=== PATIENT | male | born 1965 | race Caucasian/White ===

== ENCOUNTER 2022-10-30 14:01 | Observation (INO) | payer OTHER, SELFPAY ==
--- NOTE | 2022-10-30 15:37 | RAD REPORT ---
EXAM DESCRIPTION: RAD - Chest Single View - 10/30/2022 3:24 pm CLINICAL HISTORY: CHEST PAIN COMPARISON: CHEST PA AND LAT 2 VIEW dated 01/07/2013 FINDINGS: Lines: None. Lungs: No evidence of edema or pneumonia. Pleural: No significant pleural effusions or pneumothorax. Cardiac: The heart size is within normal limits. Mediastinum: Within normal limits. Bones: No acute fractures. Other: None IMPRESSION: No acute cardiopulmonary disease.
[2022-10-30 16:16] LABS: Absolute Lymphocytes (CBC) 1.2 K/uL (0.7-4.9); Hematocrit 44.2 % (39.6-49.0); Lymphocytes % 20.7 % (15.3-44.8); MCV 96.7 fL (80-100); MPV 6.6 fL (7.6-11.3); RBC Red Blood Cell Count 4.57 M/uL (4.33-5.43)
[2022-10-30 16:36] LABS: Albumin 3.5 g/dL (3.4-5.0); Bilirubin Total 0.2 mg/dL (0.2-1.0); Potassium 3.9 mmol/L (3.5-5.1); Protein, Total 7.1 g/dL (6.4-8.2); Troponin High Sensitivity 6.1 pg/mL (<58.9)
--- NOTE | 2022-10-30 16:43 | ER ---
Nurse's Notes [facility] Name: Christofer Briggs Age: 56 yrs Sex: Male : 1965 Arrival Date: 10/30/2022 Time: 14:04 Bed 14 Private MD: Diagnosis: Chest pain, unspecified;Unstable angina Presentation: 10/30 14:16 Chief complaint: Patient states: LEFT SIDED DULL CHEST PAIN RADIATING TO LEFT JAW. bp Coronavirus screen: At this time, the client does not indicate any symptoms associated with coronavirus-19. Ebola Screen: No symptoms or risks identified at this time. Initial Sepsis Screen: Does the patient meet any 2 criteria? No. Patient's initial sepsis screen is negative. Does the patient have a suspected source of infection? No. Patient's initial sepsis screen is negative. Risk Assessment: Do you want to hurt yourself or someone else? Patient reports no desire to harm self or others. Onset of symptoms is unknown. 14:16 Method Of Arrival: Ambulatory bp 14:16 Acuity: KELSIE 3 bp Triage Assessment: 16:45 General: Appears in no apparent distress. comfortable, Behavior is calm, cooperative, db agitated. Pain: Complains of pain in chest. Cardiovascular: Reports chest pain, Capillary refill < 3 seconds. Historical: - Allergies: 14:26 Codeine; bp 14:26 Demerol; bp 14:26 Compazine; bp - Home Meds: 14:26 omeprazole 40 mg oral cpDR 1 cap once daily [Active]; zolpidem 10 mg Oral tab 1 tab bp once daily [Active]; AndroGel transdermal [Active]; Accuretic 10-12.5 mg oral tab 1 tab once daily [Active]; metoprolol tartrate 100 mg Oral tab 1 tab once daily [Active]; metformin 1,000 mg Oral tr24 1 tab 2 times per day [Active]; tadalafil 20 mg oral tab 1 tab once daily [Active]; aspirin 81 mg Oral cap 1 cap once daily [Active]; - PMHx: 14:26 Diabetes mellitus; Hypertensive disorder; bp - Immunization history:: Adult Immunizations up to date. - Social history:: Smoking status: Patient denies any tobacco usage or history of. Screenin:00 [facility] ED Fall Risk Assessment (Adult) History of falling in the last 3 months, db including since admission No falls in past 3 months (0 pts) Confusion or Disorientation No (0 pts) Intoxicated or Sedated No (0 pts) Impaired Gait No (0 pts) Mobility Assist Device Used No (0 pt) Altered Elimination No (0 pt) Score/Fall Risk Level 0 - 2 = Low Risk Oriented to surroundings, Maintained a safe environment. Abuse screen: Denies threats or abuse. Denies injuries from another. Nutritional screening: No deficits noted. Tuberculosis screening: No symptoms or risk factors identified. Assessment: 17:06 Reassessment: Patient appears in no apparent distress at this time. No changes from db previously documented assessment. Patient and/or family updated on plan of care and expected duration. Pain level reassessed. Patient is alert, oriented x 3, equal unlabored respirations, skin warm/dry/pink. Reassessment: PATIENT ON PHONE IN NAD. General: Appears in no apparent distress. comfortable, Behavior is calm, cooperative, appropriate for age, quiet. Pain:. 18:00 Pain: Complains of pain in chest Pain does not radiate. Pain began 1 day ago. db 18:50 Reassessment: Patient appears in no apparent distress at this time. PATIENT AMBULATORY db TO RESTROOM. 19:11 Neuro: No deficits noted. Level of Consciousness is awake, alert, obeys commands, db Oriented to person, place, time, situation, Appropriate for age. 20:22 Reassessment: Patient appears in no apparent distress at this time. Patient and/or jb4 family updated on plan of care and expected duration. Pain level reassessed. Patient is alert, oriented x 3, equal unlabored respirations, skin warm/dry/pink. Provider okayed pt to take his home dose of 10 mg of zolpidem. Pt instructed to inform staff when he takes medication. 21:19 Reassessment: Patient appears in no apparent distress at this time. Patient and/or jb4 family updated on plan of care and expected duration. Pain level reassessed. Patient is alert, oriented x 3, equal unlabored respirations, skin warm/dry/pink. 22:45 Reassessment: Patient appears in no apparent distress at this time. Patient and/or jb4 family updated on plan of care and expected duration. Pain level reassessed. Patient is alert, oriented x 3, equal unlabored respirations, skin warm/dry/pink. Vital Signs: 14:16 BP 119 / 75; Pulse 83; Resp 17; Temp 99; Pulse Ox 97% ; Weight 73.03 kg; Height 5 ft. 5 bp in. (165.10 cm); 17:00 BP 148 / 60; Pulse 63; Resp 18; Pulse Ox 99% on R/A; db 18:00 BP 136 / 87; Pulse 65; Resp 18; Pulse Ox 100% on R/A; db 18:30 BP 135 / 83; Pulse 65; Resp 18; Pulse Ox 100% on R/A; db 19:00 BP 130 / 82; Pulse 65; Resp 16; Pulse Ox 100% on R/A; jb4 20:00 BP 134 / 82; Pulse 69; Resp 16; Pulse Ox 99% on R/A; jb4 21:00 BP 115 / 63; Pulse 69; Resp 15; Pulse Ox 98% on R/A; jb4 22:00 BP 137 / 82; Pulse 66; Resp 16; Pulse Ox 96% on R/A; jb4 14:16 Body Mass Index 26.79 (73.03 kg, 165.10 cm) bp Vitals: 17:00 Cardiac Rhythm Assessment Regular. ED Course: 14:04 Patient arrived in ED. jj6 14:18 Triage completed. bp 14:57 Priscilla Hooper MD is Attending Physician. sd2 15:26 XRAY Chest (1 view) In Process Unspecified. EDMS 15:52 Dejah Walton, RN is Primary Nurse. db 16:07 BNP Sent. ld1 16:07 CMP Sent. ld1 16:07 Troponin High Sensitivity Sent. ld1 16:07 CBC with Diff Sent. ld1 16:07 Inserted saline lock: 20 gauge in right upper arm, using aseptic technique. Blood ld1 collected. 16:42 Leida Hillman MD is Hospitalizing Provider. sd2 16:45 Arm band placed on right wrist. Patient placed in an exam room, on a stretcher, on db cardiac sonographer. 17:00 Patient has correct armband on for positive identification. Bed in low position. Call db light in reach. Side rails up X 1. Client placed on continuous cardiac and pulse oximetry monitoring. NIBP monitoring applied. Warm blanket given. 21:19 SARS RAPID Sent. tw5 22:46 No provider procedures requiring assistance completed. Patient admitted, IV remains in jb4 place. Patient maintains SpO2 saturation greater than 95% on room air. Administered Medications: 16:54 Drug: Aspirin Chewable Tablet 324 mg Route: PO; db 19:10 Follow up: Response: No adverse reaction db 22:32 Not Given (Patient Refused): Ambien (zolpidem) 10 mg PO once jb4 Medication: 17:00 VIS not applicable for this client. db Outcome: 16:42 Decision to Hospitalize by Provider. sd2 22:46 Admitted to Med/surg accompanied by nurse, via wheelchair, room 229, with chart. jb4 22:46 Condition: stable 22:46 Discharge instructions given to patient, Instructed on the need for admit, Demonstrated understanding of instructions. 22:47 Patient left the ED. jb4 Signatures: Dispatcher [employer] EDNav Dickerson RN RN jb4 Hector Fernandez RN RN bp Lorraine Wallace RN RN ld1 Reyna Mendieta tw5 Faith Leblanc j6 Priscilla Hooper MD MD sd2 Dejah Walton RN RN db Corrections: (The following items were deleted from the chart) 19:11 19:11 Pain: Complains of pain in chest Pain does not radiate. Pain began 1 day ago. db db
--- NOTE | 2022-10-30 16:43 | EDPHYS ---
Physician Documentation [facility] [place] Name: Christofer Briggs Age: 56 yrs Sex: Male : 1965 Arrival Date: 10/30/2022 Time: 14:04 Bed 14 Private MD: ED Physician Priscilla Hooper HPI: 10/30 16:12 This 56 yrs old Male presents to ER via Ambulatory with complaints of Chest Pain. sd2 16:12 56 yo M presents with CC of chest pain on and off for the past 3 weeks. Initially was sd2 driving down to [place] and felt L sided CP radiating into his jaw with sweating of both of his hands, SOB and nausea and was seen at hospital there with negative workup. Followed up with GI, Dr. Nguyen, upon his return with negative EGD. Seen by Dr. Fuchs today with concern for unstable angina and pt sent to ER for admission for heart cath to be performed tomorrow. . Historical: - Allergies: 14:26 Codeine; bp 14:26 Demerol; bp 14:26 Compazine; bp - Home Meds: 14:26 omeprazole 40 mg oral cpDR 1 cap once daily [Active]; zolpidem 10 mg Oral tab 1 tab bp once daily [Active]; AndroGel transdermal [Active]; Accuretic 10-12.5 mg oral tab 1 tab once daily [Active]; metoprolol tartrate 100 mg Oral tab 1 tab once daily [Active]; metformin 1,000 mg Oral tr24 1 tab 2 times per day [Active]; tadalafil 20 mg oral tab 1 tab once daily [Active]; aspirin 81 mg Oral cap 1 cap once daily [Active]; - PMHx: 14:26 Diabetes mellitus; Hypertensive disorder; bp - Immunization history:: Adult Immunizations up to date. - Social history:: Smoking status: Patient denies any tobacco usage or history of. ROS: 16:12 Constitutional: Negative for fever, chills, and weight loss, Eyes: Negative for injury, sd2 pain, redness, and discharge. 16:12 MS/Extremity: Negative for injury and deformity, Skin: Negative for injury, rash, and discoloration, Neuro: Negative for headache, numbness and tingling. 16:12 Cardiovascular: Positive for chest pain, Negative for edema, acute changes. 16:12 Respiratory: Positive for shortness of breath, Negative for cough, wheezing. 16:12 Abdomen/GI: Positive for nausea, Negative for abdominal pain, vomiting, diarrhea. Exam: 16:12 Constitutional: This is a well developed, well nourished patient who is awake, alert, sd2 and in no acute distress. Head/Face: Normocephalic, atraumatic. Eyes: EOMI, normal conjunctiva bilaterally Chest/axilla: Normal chest wall appearance and motion. Nontender with no deformity. Cardiovascular: Regular rate and rhythm with a normal S1 and S2. No gallops, murmurs, or rubs. 2+ distal pulses. Respiratory: Lungs have equal breath sounds bilaterally, clear to auscultation and percussion. No rales, rhonchi or wheezes noted. No increased work of breathing, no retractions or nasal flaring. Abdomen/GI: Soft, non-tender, with normal bowel sounds. No guarding or rebound. No evidence of tenderness throughout. Skin: Warm, dry with normal turgor. Normal color with no rashes, no lesions, and no evidence of cellulitis. MS/ Extremity: Pulses equal, no cyanosis. Neurovascular intact. Full, normal range of motion. Ambulatory without difficulty. Psych: Awake, alert, with orientation to person, place and time. Behavior, mood, and affect are within normal limits. 16:12 ECG was reviewed by the Attending Physician. NSR, rate 75, no STEMI criteria Vital Signs: 14:16 BP 119 / 75; Pulse 83; Resp 17; Temp 99; Pulse Ox 97% ; Weight 73.03 kg; Height 5 ft. 5 bp in. (165.10 cm); 17:00 BP 148 / 60; Pulse 63; Resp 18; Pulse Ox 99% on R/A; db 18:00 BP 136 / 87; Pulse 65; Resp 18; Pulse Ox 100% on R/A; db 18:30 BP 135 / 83; Pulse 65; Resp 18; Pulse Ox 100% on R/A; db 19:00 BP 130 / 82; Pulse 65; Resp 16; Pulse Ox 100% on R/A; jb4 20:00 BP 134 / 82; Pulse 69; Resp 16; Pulse Ox 99% on R/A; jb4 21:00 BP 115 / 63; Pulse 69; Resp 15; Pulse Ox 98% on R/A; jb4 22:00 BP 137 / 82; Pulse 66; Resp 16; Pulse Ox 96% on R/A; jb4 14:16 Body Mass Index 26.79 (73.03 kg, 165.10 cm) bp MDM: 16:11 Patient medically screened. sd2 16:15 Differential diagnosis: Differential diagnosis includes but is not limited to: ACS, sd2 DVT/PE, pneumothorax, dissection, musculoskeletal, anxiety, anemia, electrolyte abnormality, pneumonia, CHF, COPD among others. Data reviewed: vital signs, nurses notes. 16:40 HEART Score: History: Moderately Suspicious (1), ECG: Normal (0), Age: > 45 and < 65 sd2 years (1), Risk Factors: 1 or 2 risk factors (1), Troponin: < or = 1 x Normal Limit (0), Total Score = 3. The patient was given aspirin in the Emergency Department. Data reviewed: lab test result(s), EKG, radiologic studies. Counseling: I had a detailed discussion with the patient and/or guardian regarding: the historical points, exam findings, and any diagnostic results supporting the discharge/admit diagnosis, lab results, radiology results, the need for further work-up and treatment in the hospital. ED course: Labs and imaging reviewed. Grossly WNCL. Trop neg. EKG with no ischemic changes. CXR with no acute process. Discussed case with Dr. Fuchs with concern for unstable angina. Would like patient admitted to continue to trend troponin and plan for heart cath tomorrow. Pt in agreement with treatment plan at this time. . 10/30 15:13 Order name: CBC with Diff; Complete Time: 16:37 sd2 10/30 15:13 Order name: CMP; Complete Time: 16:37 sd2 10/30 15:13 Order name: Troponin High Sensitivity; Complete Time: 16:37 sd2 10/30 15:13 Order name: BNP; Complete Time: 16:37 sd2 10/30 16:53 Order name: Troponin High Sensitivity EDMS 10/30 16:53 Order name: Lipid Profile EDMS 10/30 15:13 Order name: XRAY Chest (1 view); Complete Time: 15:48 sd2 10/30 16:53 Order name: Echo with Doppler EDMS 10/30 16:53 Order name: Echo with Doppler EDMS 10/30 16:53 Order name: Lipid Profile EDMS 10/30 16:53 Order name: Troponin High Sensitivity EDNE 10/30 16:53 Order name: Troponin High Sensitivity EDNE 10/30 20:16 Order name: SARS RAPID wm 10/30 21:41 Order name: SARS-COV-2 Antigen Rapid EDNE 10/30 14:30 Order name: EKG; Complete Time: 14:30 bp 10/30 14:30 Order name: EKG - Nurse/Tech; Complete Time: 14:30 bp 10/30 16:53 Order name: CONS Physician Consult EDNE 10/30 16:53 Order name: Heart Healthy EDNE 10/30 16:53 Order name: EKG Electrocardiogram EDMS 10/30 16:53 Order name: EKG Electrocardiogram EDNE Administered Medications: 16:54 Drug: Aspirin Chewable Tablet 324 mg Route: PO; db 19:10 Follow up: Response: No adverse reaction db 22:32 Not Given (Patient Refused): Ambien (zolpidem) 10 mg PO once jb4 Disposition Summary: 10/30/22 16:42 Hospitalization Ordered Hospitalization Status: Observation sd2 Provider: Leida Hillman sd2 Condition: Stable sd2 Problem: new sd2 Symptoms: are unchanged sd2 Bed/Room Type: Standard sd2 Location: Telemetry/MedSurg (observation)(10/30/22 19:16) dw Room Assignment: 229(10/30/22 21:54) Diagnosis - Chest pain, unspecified sd2 - Unstable angina sd2 Forms: - Medication Reconciliation Form sd2 - SBAR form sd2 Signatures: Dispatcher [employer] [facility] Carla Gooden RN RN Niharika Disla RN RN dw Hector Fernandez RN RN Priscilla Chen MD MD sd2 Dejah Walton, RN RN Teri Hernández PA-C PA-C sbNav Edwards RN jb4 Corrections: (The following items were deleted from the chart) 19:13 16:42 sd2 dw 19:16 16:42 Telemetry/MedSurg (observation) sd2 dw 19:16 19:13 205 dw dw 21:54 19:16 dw
[2022-10-30] MEDS ORDERED: MORPHINE 4 MG/ML SYR IV PRN (16:46)
[2022-10-30] MEDS ORDERED: ACETAMINOPHEN 500 MG TAB PO PRN (16:46)
[2022-10-30] MEDS ORDERED: ALPRAZOLAM 0.25 MG TABLET PO PRN (16:46)
[2022-10-30] MEDS ORDERED: ASPIRIN 81 MG CHEWABLE TABLET ONE (16:52)
[2022-10-30] MEDS ORDERED: ENOXAPARIN 100 MG/ML SYR SQ SCH (18:00)
[2022-10-30] MEDS: METOPROLOL TAR 50 MG TAB PO SCH ×2 (18:00→21:00)
[2022-10-30] MEDS ORDERED: ENOXAPARIN 80 MG/0.8 ML SQ SCH (18:30)
--- NOTE | 2022-10-30 21:24 | P.HP ---
Certification for Inpatient Patient admitted to: Observation With expected LOS: <2 Midnights Patient will require the following post-hospital care: None Practitioner: I am a practitioner with admitting privileges, knowledge of patient current condition, hospital course, and medical plan of care. Services: Services provided to patient in accordance with Admission requirements found in Title 42 Section 412.3 of the Code of Federal Regulations Patient History Date of Service: 10/30/22 Reason for admission: Chest pain rule out acute coronary syndrome History of Present Illness: Patient is a 56-year-old gentleman who comes in the hospital with chest discomfort. Actually was at an outside hospital in [place], [place] with the same issue a few weeks ago. He was ruled out for acute myocardial infarction. Troponins were negative x3. He went and followed up with Gastroenterology and had an EGD performed which did not reveal any significant pathology. Since they were not really able to get to the bottom a was causing his chest discomfort they want to see Cardiology. His symptoms were concerning as he had pain going down his left arm and up his left neck. He was diaphoretic as well. He was sent to the emergency room for further workup. In the ER his initial troponins are negative and EKG shows no abnormalities. Patient will be admitted to the hospital for further workup. Allergies codeine Allergy (Verified 10/30/22 20:38) Nausea/Vomiting meperidine [From Demerol] Allergy (Verified 10/30/22 20:38) Itching/Hives/Rash prochlorperazine [From Compazine] Allergy (Verified 10/30/22 20:38) Itching/Hives/Rash - Past Medical/Surgical History -: HTN -: DM2 -: Dyslipidemia Past Surgical History: Patient denies surgical history - Family History Father Family History: Reviewed- Non-Contributory - Social History Smoking Status: Former smoker Alcohol use: No CD- Drugs: No Review of Systems 10-point ROS is otherwise unremarkable Physical Examination - Vital Signs Temperature: 98 F Blood Pressure: 140/80 Pulse: 90 Respirations: 18 Pulse Ox (%): 96 - Physical Exam General: Alert, In no apparent distress, Oriented x3 HEENT: Atraumatic, PERRLA, Mucous membr. moist/pink, EOMI, Sclerae nonicteric Neck: Supple, 2+ carotid pulse no bruit, No LAD, Without JVD or thyroid abnormality Respiratory: Clear to auscultation bilaterally, Normal air movement Cardiovascular: Regular rate/rhythm, Normal S1 S2, No murmurs Gastrointestinal: Normal bowel sounds, Soft and benign, Non-distended, No tenderness Musculoskeletal: No clubbing, No swelling, No tenderness Integumentary: No rashes Neurological: Normal gait, Normal speech, Normal strength at 5/5 x4 extr, Normal tone, Sensation intact, Cranial nerves 3-12 intact, Normal affect Lymphatics: No axilla or inguinal lymphadenopathy - Studies Laboratory Data (last 24 hrs) 10/30/22 16:03: Sodium 138, Potassium 3.9, BUN 25 H, Creatinine 1.02, Glucose 207 H, Total Bilirubin 0.2, AST 10 L, ALT 24, Alkaline Phosphatase 68 10/30/22 16:03: WBC 5.80, Hgb 14.9, Hct 44.2, Plt Count 279 Assessment & Plan - Problems (Diagnosis) (1) Chest pain, rule out acute myocardial infarction Current Visit: Yes Status: Acute (2) HTN (hypertension) Current Visit: Yes Status: Acute (3) DM2 (diabetes mellitus, type 2) Current Visit: Yes Status: Acute Qualifiers: Diabetes mellitus complication status: without complication (4) Dyslipidemia Current Visit: Yes Status: Acute - Plan 1. Serial troponins and EKG 2. Appreciate Cardiology consultation 3. Echocardiogram and possible cath in the AM 4. Anti-platelet therapy, anti coagulation, beta-ronny, statin, and O2 as needed 5. IV morphine for pain 6. Nitro p.r.n. 7. Strict BP and BS control Discharge Plan: Home Plan to discharge in: 48 Hours - Advance Directives Does patient have a Living Will: No Does patient have a Durable POA for Healthcare: No - Code Status/Comfort Care Code Status Assessed: Yes Code Status: Full Code Critical Care: No Time Spent Managing PTS Care (In Minutes): 45
[2022-10-30 21:41] LABS: SARS-CoV-2 Antigen Rapid Res Negative (Negative)
[2022-10-30] MEDS ORDERED: ENOXAPARIN 80 MG/0.8 ML SQ ONE (22:57)
[2022-10-30 22:59] VITALS: BMI 26.8
[2022-10-31] MEDS ORDERED: ASPIRIN EC 81 MG TAB PO SCH (09:00)
[2022-10-31] MEDS: METOPROLOL TAR 50 MG TAB PO SCH (10:08)
[2022-10-31] MEDS ORDERED: HEPA 1000U/500MLS 2,000 UNIT/1,000 ML BAG IV ONE (10:58)
[2022-10-31] MEDS ORDERED: LIDOCAINE 1% MPF 30 ML VIAL ONE ×2 (10:58→13:08)
[2022-10-31] MEDS ORDERED: NA CHLORIDE 0.9% 500 ML ONE ×2 (11:49→13:46)
[2022-10-31 12:19] VITALS: TEMP 97.1
[2022-10-31] MEDS ORDERED: HEPARIN 5000 UNIT/ML 1 ML VIAL ONE (13:07)
[2022-10-31] MEDS ORDERED: FENTANYL CITR 100 MCG/2 ML ONE (13:07)
[2022-10-31] MEDS ORDERED: MIDAZOLAM HCL 2 MG/2 ML INJ ONE (13:07)
[2022-10-31] MEDS ORDERED: VERAPAMIL HCL 10 MG/4 ML VIAL IV ONE (13:08)
[2022-10-31] MEDS ORDERED: ATROPINE SULF 1 MG/10 ML SYR IV ONE (13:08)
[2022-10-31] MEDS ORDERED: HEPARIN 10,000 UNIT/10 ML VIAL IV ONE (13:08)
--- NOTE | 2022-10-31 14:52 | EKG ---
Test Date: 2022-10-30 Test Time: 14:26:09 Sewing Pattern Layout Technician: MABEL MEASUREMENT RESULTS: Intervals: Rate: 75 ND: 142 QRSD: 96 QT: 394 QTc: 439 [place]: P: 14 ND: 142 QRS: -14 T: 16 INTERPRETIVE STATEMENTS: Normal sinus rhythm Normal ECG Compared to ECG 04/13/2003 14:52:00 No significant changes Electronically Signed On 10-31-22 14:50:37 PRICING ACTUARY by Jose Fuchs
[2022-10-31 15:03] VITALS: O2SAT 97
[2022-10-31 15:17] VITALS: BP 105/61
--- NOTE | 2022-10-31 15:33 | CON ---
Date of Consultation: 10/31/2022 Reason For Consultation: Chest pain and unstable angina. History Of Present Illness: 56-year-old male, history of diabetes, hypertension, dyslipidemia, has b een having chest pain on minimal exertion, feels short of breath and about to faint with minimal acti vities and he was having active chest pain at the time of my evaluation in the office. He was sent t o the emergency room where his cardiac enzymes have been negative. Past Medical History: As outlined above in the HPI. Medications: Refer to reconciliation sheet for detailed list. Allergies: CODEINE, IVABRADINE, AND PROCHLORPERAZINE. Family History: No premature coronary artery disease or cancer. Social History: Does not smoke or drink. Does not use any drugs. Review of Systems: All systems reviewed and they were negative except for mentioned in HPI. Physical Examination: Vital Signs: Reviewed. Head and Neck: Pupils are equal, reactive to light. Intact eye movements. No JVD. No cervical lym phadenopathy. Neck is supple. Thyroid is not enlarged. Lungs: Clear to auscultation bilaterally. No rhonchi, rales, or crackles. No accessory muscle use. Heart: Regular rate and rhythm. No extra sounds. Abdomen: Soft, nontender. Bowel sounds positive. No organomegaly. No masses or hernia. No rigidi ty or rebound. Extremities: No edema, clubbing, or cyanosis. Intact pulses. Skin: No rash. Neurologic: Alert, awake, oriented x3. No acute focal deficits appreciated. Investigations: Troponins x3 are negative. BUN is 25, creatinine 1.02, and hemoglobin is 14.9. Assessment And Recommendation: 1.Chest pain suggestive of unstable angina. Cardiac enzymes are negative. Patient is n.p.o. Plan for coronary angiogram today. If coronary angiogram is normal, patient can be released afterwards. 2.Hypertension. Blood pressure is controlled. Continue current management. 3.Dyslipidemia and recommend high-dose statin with the Lipitor 40 mg q.h.s. SR/MODL Voice ID: [id number] Report ID: [id number]
--- NOTE | 2022-10-31 18:00 | OP ---
Date of Procedure: 10/31/2022 Surgeon: WAYNE SILVA Procedures Performed: 1.Selective coronary angiogram. 2.Left heart catheterization. Indication: Unstable angina. Access: Right radial artery 6-Salvadorean closed with TR band. Complications: None. Bleeding: Less than 10 mL. Description Of Procedure: After risks, benefits, alternatives were explained, patient agreed to the procedure and signed informed consent. Patient was brought to the cardiac catheterization laboratory , prepped and draped in sterile fashion. Then, I accessed right radial artery using pediatric microp uncture kit, placed 6-Salvadorean Slender sheath and took a 5-Salvadorean [place] 4.0 catheter into the aortic ro ot, engaged the RCA, could not engage the left main due to high takeoff and the angulation, so I used a 6-Salvadorean EBU 4 guide and engaged the left main, took standard views and then removed the guide and using the [place] catheter, the catheter was pushed over the wire into the LV. LVEDP was measured and pullback did not record any gradient and then removed old catheter and the sheath and placed TR band with good hemostasis. Findings: 1.Left main: Normal. 2.LAD: Large vessel, normal diagonal branches, normal LAD except the midportion there is a focal 20 % stenosis. 3.Left circumflex: Moderate-sized, normal, free of disease and normal OM branches. 4.RCA: Large and dominant and normal. 5.Normal LVEDP at 8 mmHg. Conclusion: 1.Mild nonobstructive coronary artery disease as outlined above. 2.Normal LVEDP. Plan: Medical management. SR/MODL Voice ID: [id number] Report ID: [id number]
--- NOTE | 2022-11-04 07:51 | ECHO ---
HEIGHT: 5 ft 5 in WEIGHT: 161 lb 0 oz DATE OF STUDY: 10/31/[address]: Leida Hillman MD 2-DIMENSIONAL: YES M.MODE: YES DOPPLER: YES COLOR FLOW: YES TDS: NO PORTABLE: YES DEFINITY: NO BUBBLE STUDY: NO DIAGNOSIS: CHEST PAIN/ ACUTE CORONARY SYNDROME CARDIAC HISTORY: CATHERIZATION: NO SURGERY: NO PROSTHETIC VALVE: NO PACEMAKER: NO MEASUREMENTS (cm) DIASTOLIC (NORMALS) SYSTOLIC (NORMALS) IVSd 0.8 (0.6-1.2) LA Diam 3.9 (1.9-4.0) LVEF 61% LVIDd 4.8 (3.5-5.7) LVIDs 3.3 (2.0-3.5) %FS 32% LVPWd 0.9 (0.6-1.2) Ao Diam 3.1 (2.0-3.7) 2 DIMENSIONAL ASSESSMENT: RIGHT ATRIUM: NORMAL LEFT ATRIUM: NORMAL RIGHT VENTRICLE: NORMAL LEFT VENTRICLE: NORMAL TRICUSPID VALVE: MILD TRICUSPID REGURGITATION MITRAL VALVE: NORMAL PULMONIC VALVE: NORMAL AORTIC VALVE: MILD AORTIC INSUFFICIENCY PERICARDIAL EFFUSION: NONE AORTIC ROOT: NORMAL LEFT VENTRICULAR WALL MOTION: NORMAL. DOPPLER/COLOR FLOW: SEE BELOW. COMMENTS: NORMAL LEFT VENTRICULAR EJECTION FRACTION 60-65%. NORMAL WALL MOTION. MILD TRICUSPID REGURGITATION. MILD PULMONIC INSUFFICIENCY. TRACE OF MITRAL REGURGITATION. TECHNOLOGIST: LASHAUN ACOSTA
--- NOTE | 2022-11-16 03:19 | P.DS ---
Discharge Date: 10/31/22 Disposition: ROUTINE DISCHARGE Discharge Condition: GOOD Reason for Admission: Chest pain rule out acute coronary syndrome Consultations: Cardiology/ cardiac catheterization - Problems (1) Chest pain, rule out acute myocardial infarction Status: Acute (2) HTN (hypertension) Status: Acute (3) DM2 (diabetes mellitus, type 2) Status: Acute Qualifiers: Diabetes mellitus complication status: without complication (4) Dyslipidemia Status: Acute Brief History of Present Illness: Patient is a 56-year-old gentleman who comes in the hospital with chest discomfort. Actually was at an outside hospital in [place], [place] with the same issue a few weeks ago. He was ruled out for acute myocardial infarction. Troponins were negative x3. He went and followed up with Gastroenterology and had an EGD performed which did not reveal any significant pathology. Since they were not really able to get to the bottom a was causing his chest discomfort they want to see Cardiology. His symptoms were concerning as he had pain going down his left arm and up his left neck. He was diaphoretic as well. He was sent to the emergency room for further workup. In the ER his initial troponins are negative and EKG shows no abnormalities. Patient will be admitted to the hospital for further workup. Hospital Course: patient had an echocardiogram which was unremarkable. No abnormal findings noted. Patient had cardiac catheterization performed and no significant coronary artery lesions. Patient is clinically doing well and at this time patient is stable for discharge home. Vital Signs/Physical Exam: Temp Pulse Resp BP Pulse Ox 97.1 F 64 18 105/61 96 10/31/22 12:00 10/31/22 15:15 10/31/22 15:15 10/31/22 15:15 10/31/22 12:00 General: Alert, In no apparent distress, Oriented x3 Laboratory Data at Discharge: WBC 5.80 K/uL (4.3-10.9) 10/30/22 16:03 Hgb 14.9 g/dL (13.6-17.9) 10/30/22 16:03 Hct 44.2 % (39.6-49.0) 10/30/22 16:03 Plt Count 279 K/uL (152-406) 10/30/22 16:03 Sodium 138 mmol/L (136-145) 10/30/22 16:03 Potassium 3.9 mmol/L (3.5-5.1) 10/30/22 16:03 BUN 25 mg/dL (7-18) H 10/30/22 16:03 Creatinine 1.02 mg/dL (0.70-1.30) 10/30/22 16:03 Glucose 207 mg/dL (74-106) H 10/30/22 16:03 Total Bilirubin 0.2 mg/dL (0.2-1.0) 10/30/22 16:03 AST 10 U/L (15-37) L 10/30/22 16:03 ALT 24 U/L (16-61) 10/30/22 16:03 Alkaline Phosphatase 68 U/L (45-117) 10/30/22 16:03 Triglycerides 337 mg/dL (<150) H 10/31/22 03:11 Cholesterol 194 mg/dL (<200) 10/31/22 03:11 HDL Cholesterol 35 mg/dL (40-60) L 10/31/22 03:11 Cholesterol/HDL Ratio 5.54 10/31/22 03:11 Home Medications: Aspirin 81 mg PO DAILY 10/30/22 Cholecalciferol (Vitamin D3) [Vitamin D3] 2,000 unit PO DAILY 10/30/22 Mecobalamin [B12 Active] 1,000 mcg PO DAILY 10/30/22 Metformin HCl 1,000 mg PO BIDWM 10/30/22 Metoprolol Succinate [Toprol Xl*] 50 mg PO BID 10/30/22 [place]-3 Fatty Acids [[place]-3] 1,000 mg PO DAILY 10/30/22 Omeprazole [Prilosec] 40 mg PO DAILY 10/30/22 Quinapril/Hydrochlorothiazide [Quinapril-Hctz 10-12.5 mg Tab] 1 each PO DAILY 10/30/22 Testosterone [Androgel] 1.25 gm TD DAILY 10/30/22 Ubidecarenone [Co Q-10] 100 mg PO DAILY 10/30/22 Zolpidem Tartrate [Ambien*] 10 mg PO BEDTIME PRN PRN 10/30/22 Physician Discharge Instructions: -DC IV and DC home -Follow-up with PCP in 1 to 2 weeks -Follow-up with Cardiology in 1 to 2 weeks -Please call Dr. Hillman at [phone] if any questions regarding hospital stay -Please call nursing station at [phone] if any nursing or medication questions -Return to the emergency room if symptoms worsen Diet: AHA Activity: Fall precautions Time spent managing pt's care (in minutes): 35
== END 2022-10-31 16:10 | disposition home or self-care (01) ==
LOC: ER 14:01 → ERHOLD 16:46 → 2ND 22:30
PROVIDERS: ADMIT Hospitalist; ATTEND Hospitalist
DX: I25.110 Atherosclerotic heart disease of native coronary artery with unstable angina pectoris (principal); I10 Essential (primary) hypertension; E11.9 Type 2 diabetes mellitus without complications; E78.5 Hyperlipidemia, unspecified; Z87.891 Personal history of nicotine dependence; Z88.5 Allergy status to narcotic agent; Z88.6 Allergy status to analgesic agent; Z20.822 Contact with and (suspected) exposure to COVID-19
CPT/HCPCS: 93005; 93306; 85025; 36415; 80061; 84484 ×3; 80053; 83880; 71045; 93458; 76937; 99285; 87811; C1893; Q9967; J2001 ×2; J1644 ×2; J2250; J3010; J1650; G0378 ×4; J7040 ×2; J0461